=== PATIENT | male | born 1980 | race Caucasian/White ===

== ENCOUNTER 2021-01-29 10:39 | Emergency (ER) | payer OTHER ==
[2021-01-29 10:45] VITALS: BP 128/82; PULSE 100; O2SAT 98
--- NOTE | 2021-01-29 10:51 | ERPHSYRPT ---
- History of Present Illness Time Seen by Provider: 01/29/21 10:47 Source: patient, family Patient Subjective Stated Complaint: Pt states "I was sharpening a filet knife and I hit my knee." Triage Nursing Assessment: Pt presented alert and oriented X 3, skin wpd Pt ambulates with an upright steady gait, able to speak in clear full sentences pt has laceration noted to left knee approx 3 cm x 0.5 Physician History: This is a 40-year-old obese white male who was sharpening his fillet knife when it slipped hitting his anterior left knee causing a laceration. Patient attempted to stop the bleeding by using a topical agent for this. It did not work. His tetanus status is unknown at this time. Timing/Duration: today Quality: painful Severity: mild Location: extremities (Skin of anterior left knee) Associated Symptoms: denies symptoms Allergies/Adverse Reactions: No Known Drug Allergies Allergy (Verified 01/29/21 10:45) Hx Tetanus, Diphtheria Vaccination/Date Given: No Hx Influenza Vaccination/Date Given: No Hx Pneumococcal Vaccination/Date Given: No Immunizations Up to Date: Yes Travel Risk - International Travel Have you traveled outside of the country in past 3 weeks: No - Coronavirus Screening Are you exhibiting any of the following symptoms?: No Close contact with a COVID-19 positive Pt in past 14-21 Days: No - Vaccine Status Have you recieved a Covid-19 vaccination: No - Review of Systems Constitutional: No Symptoms Eyes: No Symptoms Ears, Nose, & Throat: No Symptoms Respiratory: No Symptoms Cardiac: No Symptoms Abdominal/Gastrointestinal: No Symptoms Genitourinary Symptoms: No Symptoms Musculoskeletal: No Symptoms Skin: Other (Laceration left knee anterior) Neurological: No Symptoms Psychological: No Symptoms Endocrine: No Symptoms Hematologic/Lymphatic: No Symptoms Immunological/Allergic: No Symptoms All Other Systems: Reviewed and Negative - Past Medical History Pertinent Past Medical History: No - Past Surgical History Past Surgical History: Yes Other Surgical History: left leg - Social History Smoking Status: Current every day smoker How long have you smoked: years Exposure to second hand smoke: Yes Drug Use: none Patient Lives Alone: No - Nursing Vital Signs Nursing Vital Signs: Initial Vital Signs Temperature 98.1 F 01/29/21 10:40 Pulse Rate 100 H 01/29/21 10:40 Respiratory Rate 20 01/29/21 10:40 Blood Pressure 128/82 01/29/21 10:40 O2 Sat by Pulse Oximetry 98 01/29/21 10:40 Pain Scale Pain Intensity 4 - Physical Exam General Appearance: no apparent distress, alert, anxiety, obese Eye Exam: PERRL/EOMI, eyes nml inspection Ears, Nose, Throat Exam: normal ENT inspection, moist mucous membranes Neck Exam: normal inspection, non-tender, supple, full range of motion Respiratory Exam: airway intact, No chest tenderness, No respiratory distress Gastrointestinal/Abdomen Exam: No tenderness Rectal Exam: not done Back Exam: normal inspection, normal range of motion, No CVA tenderness, No vertebral tenderness Extremity Exam: normal range of motion, pelvis stable, lacerations (4 cm horizontally oriented skin of anterior left knee laceration. No foreign bodies present. There is skin edge bleeding present.), tenderness (In the same area as above) Neurologic Exam: alert, oriented x 3, cooperative, cardiac nurse specialist II-XII nml as tested, normal mood/affect, nml cerebellar function, nml station & gait Skin Exam: laceration (As above skin of anterior left knee) Lymphatic Exam: No adenopathy SpO2 Interpretation: normal SpO2: 98 O2 Delivery: Room Air Procedures - Laceration/Wound Repair Left Anterior Knee Time of Procedure: 10:55 Wound Location: Left Wound Length (cm): 4 Wound's Depth, Shape: superficial, linear Wound Explored: clean (No foreign body noted. Examination occurred to the base in a bloodless field by holding pressure) Irrigated: Yes Hibiclens Prep: Yes Wound Repaired With: [place] (8 sharmila applied) Number of Sutures: 8 ([place]) Layer Closure?: No Progress: 01/29/21 11:05 Pressure was held to approximate the skin edges well 8 skin sharmila were used to approximate this 4 cm laceration. I did have him bend the knee with flexion and extension and there was no further bleeding and no evidence of any sharmila pulling through. Patient told the procedure well. The area was then cleaned and dried and a pressure dressing was applied by the nurse. Antibiotic ointment of bacitracin (thin layer) was applied prior to bandage placement. Patient tolerated the procedure well - Course Nursing assessment & vital signs reviewed: Yes Ordered Tests: Active Orders 24 hr Category Date Time Status Wound Care STAT Care 01/29/21 11:00 Ordered - Progress Progress: improved Counseled pt/family regarding: diagnosis, need for follow-up - Departure Departure Disposition: Home Clinical Impression: Laceration of left knee Condition: Stable Critical Care Time: No Referrals: TAWNY CAMARILLO [Primary Care Provider] - Additional Instructions: Keep the pressure dressing in place for 24 hours. After 24 hours, may remove the pressure dressing and wash it daily. After washing each day, place a thin layer of antibiotic ointment of choice to the site and replace a bandage. Staple removal in 10 to 12 days. Take your medication as prescribed. Prescriptions: Hydrocodone/APAP 5/325 [Vian 5/325 mg] 1 each PO Q8H PRN PRN #6 tablet MDD 3 PRN Reason: Pain Cephalexin Mh 500 mg [Keflex 500 mg] 500 mg PO TID #21 capsule
[2021-01-29] MEDS ORDERED: BACIGUENT PACKET TP ONE (11:02)
[2021-01-29] MEDS ORDERED: Adacel Vial IM ONE ×2 (11:02→11:05)
[2021-01-29] MEDS ORDERED: KEFLEX 500 MG PO ONE (11:02)
[2021-01-29] MEDS ORDERED: NORCO 5/325 MG PO ONE (11:02)
[2021-01-29] MEDS ORDERED: BACIGUENT PACKET ONE (11:05)
[2021-01-29] MEDS ORDERED: KEFLEX 500 MG ONE (11:05)
[2021-01-29] MEDS ORDERED: NORCO 5/325 MG ONE (11:05)
[2021-02-04] MEDS ORDERED: Rocephin 1000 MG INJ ONE (02:01)
== END 2021-01-29 11:17 | disposition home or self-care (01) ==
LOC: ED 10:39
DX: S81.012A Laceration without foreign body, left knee, initial encounter (principal); W26.0XXA Contact with knife, initial encounter; Y93.89 Activity, other specified; Y92.9 Unspecified place or not applicable
CPT/HCPCS: 12002; 90471; 90715; 99283; J0696; A9270-GY